=== PATIENT | female | born 1950 | race American Indian/Alaskan Native ===

== ENCOUNTER 2017-12-26 08:01 | Day surgery (SDC) | payer BC ==
[2017-12-18 14:02] VITALS: BMI 23.8
[2017-12-26] MEDS ORDERED: Propofol 10 mg/ml Inj (20 ML) ONE (10:45)
[2017-12-26] MEDS ORDERED: Etomidate 20 mg/10ml Inj IV ONE (10:51)
[2017-12-26] MEDS ORDERED: Sodium Chloride 0.9% 1,000 ML IV SCH (11:30)
[2017-12-26 11:46] VITALS: O2SAT 99
[2017-12-26 12:14] VITALS: BP 123/67; PULSE 62; RESP 18; TEMP 97.8
== END 2017-12-26 12:49 | disposition home or self-care (01) ==
LOC: ENDO 08:01
PROVIDERS: ATTEND Specialist
DX: Z12.11 Encounter for screening for malignant neoplasm of colon (principal); K64.8 Other hemorrhoids; I10 Essential (primary) hypertension; G35 Multiple sclerosis
CPT/HCPCS: 45378; J2001; J2704; J7030; J7040

== ENCOUNTER 2018-03-22 11:46 | Emergency (ER) | payer BC ==
[2018-03-22 11:47] VITALS: BMI 23.8
[2018-03-22] MEDS ORDERED: Benzocaine/Menthol (Cepacol) Lozenge MT STA (13:18)
--- NOTE | 2018-03-22 13:24 | ED PDOC ---
Arrival/HPI - General Chief Complaint: ENT Problem Time Seen by Provider: 03/22/18 11:59 Historian: Patient - History of Present Illness Narrative History of Present Illness (Text): 03/22/18 12:45 A 68 year old female, whose past medical history includes hypertension. hyperlipidemia, and multiple sclerosis, presents to the emergency department complaining of throat pain since 2 weeks ago from March 06. Patient notes associated head discomfort and mild discomfort when swallowing. She is able to drink fluids without difficulty. Patient reports she has taken Advil for the pain to some relief and has been to [facility] urgent care center, and was prescribed a nasal spray. Patient denies any drooling, nasal congestion, voice changes, ear pain, rhinorrhea, fever, chills, shortness of breath, chest pain, diarrhea, nausea, vomiting, urinary symptoms, back pain, neck pain, headache, dizziness, or any other complaints. PMD: Dr. Hylton Time/Duration: > week (2 weeks) Symptom Onset: Gradual Symptom Course: Unchanged Activities at Onset: Light Context: Home Past Medical History - Provider Review Nursing Documentation Reviewed: Yes - Infectious Disease Hx of Infectious Diseases: None - Cardiac Hx Heart Transplant: Yes Hx Pacemaker: No - Neurological Hx Paralysis: No - Hematological/Oncological Hx Blood Transfusions: No Hx Blood Transfusion Reaction: No - Musculoskeletal/Rheumatological Hx Musculoskeletal Disorders: Yes - Psychiatric Hx Emotional Abuse: No Hx Physical Abuse: No Hx Substance Use: No - Anesthesia Hx Anesthesia Reactions: No Hx Malignant Hyperthermia: No - Suicidal Assessment Feels Threatened In Home Enviroment: No Family/Social History - Physician Review Nursing Documentation Reviewed: Yes Family/Social History: No Known Family HX Smoking Status: Never Smoked Hx Alcohol Use: No Hx Substance Use: No Hx Substance Use Treatment: No Allergies/Home Meds Allergies/Adverse Reactions: Allergies No Known Allergies Allergy (Verified 03/22/18 12:16) Home Medications: Home Meds Medication Instructions Recorded Confirmed Polyethylene Glycol 3350 [Miralax] 17 gm PO DAILY 10/23/11 12/26/17 [place] [employer]/[place]-3 Fatty Acids 1,000 mg PO DAILY 10/23/11 12/26/17 [Fish Oil 500 mg Softgel] Ezetimibe [Zetia] 10 mg PO DAILY 12/18/17 12/26/17 Linaclotide [Linzess] 1 cap PO DAILY 12/18/17 12/26/17 Magnesium Hydroxide [Milk Of 30 ml PO DAILY PRN 12/18/17 12/26/17 Magnesia] Zolpidem [Ambien] 10 mg PO HS 12/18/17 12/26/17 amLODIPine [Norvasc] 5 mg PO DAILY 12/18/17 12/26/17 Furosemide [Lasix] 20 mg PO QWK 12/24/17 12/26/17 Ibuprofen [Advil] 200 mg PO Q6 PRN 12/24/17 12/26/17 Review of Systems - Physician Review All systems were reviewed & negative as marked: Yes - Review of Systems Constitutional: absent: Fevers, Night Sweats ENT: Other (+throat pain, no drooling). absent: Voice Changes, Sinus Congestion Respiratory: absent: SOB Cardiovascular: absent: Chest Pain Gastrointestinal: absent: Diarrhea, Nausea, Vomiting Genitourinary Female: absent: Urine Output Changes Musculoskeletal: absent: Back Pain, Neck Pain Neurological: Other (head discomfort). absent: Headache, Dizziness Physical Exam Vital Signs Reviewed: Yes Vital Signs Temp Pulse Resp BP Pulse Ox 03/22/18 12:14 98.3 F 65 18 132/81 100 Temperature: Afebrile Blood Pressure: Normal Pulse: Regular Respiratory Rate: Normal Appearance: Positive for: Well-Appearing, Non-Toxic Pain Distress: None Mental Status: Positive for: Alert and Oriented X 3 - Systems Exam Head: Present: Atraumatic, Normocephalic Pupils: Present: PERRL Extroacular Muscles: Present: EOMI Conjunctiva: Present: Normal Pharnyx: Present: Normal. No: ERYTHEMA, EXUDATE, Uvular Deviation (+uvular midline) Respiratory/Chest: Present: Clear to Auscultation, Good Air Exchange. No: Respiratory Distress, Accessory Muscle Use Neurological: Present: GCS=15, CN II-XII Intact, Speech Normal Skin: Present: Warm, Dry, Normal Color. No: Rashes Psychiatric: Present: Alert, Oriented x 3, Normal Insight, Normal Concentration Medical Decision Making ED Course and Treatment: 03/22/18 11:50 Impression: 68 year old female presenting to the emergency room for throat pain. Differential Diagnosis included but are not limited to: Viral Pharyngitis, Throat Mass Plan: -- CT of Neck without contrast -- Cepacol -- Motrin -- Throat culture -- Rapid strep group A -- Reassess and disposition Prior Visits: Notes and results from previous visits were reviewed. Progress Notes: 03/22/18 15:43 CT Soft Tissue Neck Creator : Morgan Thomas MD IMPRESSION: Unremarkable non-contrast enhanced CT of the neck. Patient states medications helped her symptoms. CT results reviewed with patient. She will be discharged home with followup. - RAD Interpretation Radiology Orders: 03/22/18 12:46 NECK SOFT TISSUE W/O CONTRAST [CT] Stat - Medication Orders Current Medication Orders: Discontinued Medications Benzocaine/Menthol (Cepacol Sore Throat) 1 nuvia MT STAT STA Stop: 03/22/18 13:19 Ibuprofen (Motrin Tab) 600 mg PO STAT STA Stop: 03/22/18 12:48 Last Admin: 03/22/18 13:12 Dose: 600 mg MAR Pain/Vitals Document 03/22/18 13:12 [email or web address] (Rec: 03/22/18 13:13 [email or web address] [employer] [facility] [employer]-[id number]) Pain Reassessment Is This A Pain ReAssessment? No Sleep Is patient sleeping during reassessment? No Presence of Pain Presence of Pain Yes Pain Scale Used Protocol: PSCALES Pain Scale Used Numeric Location Pain Location Body Site Throat Description Constant Intensity 7 Scale Used Numeric Pain Behavior Facial Grimacing Aggravating Factors Changing Position Alleviating Factors Medication Disposition/Present on Arrival - Present on Arrival Any Indicators Present on Arrival: No History of DVT/PE: No History of Uncontrolled Diabetes: No Urinary Catheter: No History of Decub. Ulcer: No History Surgical Site Infection Following: None - Disposition Have Diagnosis and Disposition been Completed?: Yes Diagnosis: Throat pain in adult Disposition: HOME/ ROUTINE Disposition Time: 15:44 Patient Plan: Discharge Patient Problems: Current Active Problems Problem Status Onset Throat pain in adult Acute Condition: IMPROVED Discharge Instructions (ExitCare): Sore Throat in Adults Additional Instructions: JORDAN ABREU, thank you for letting us take care of you today. Your provider was Pascual Simental DO and you were treated for Throat Pain. The emergency medical care you received today was directed at your acute symptoms. If you were prescribed any medication, please fill it and take as directed. It may take several days for your symptoms to resolve. Return to the Emergency Department if your symptoms worsen, do not improve, or if you have any other problems. Please contact your doctor or call one of the physicians/clinics you have been referred to that are listed on the Patient Visit Information form that is included in your discharge packet. Bring any paperwork you were given at discharge with you along with any medications you are taking to your follow up visit. Our treatment cannot replace ongoing medical care by a primary care provider outside of the emergency department. Thank you for allowing the [facility] team to be part of your care today. If you had an X-Ray or CT scan: A Radiologist will review the ED reading if any change in treatment is needed we will contact you. If you had a blood, urine, or wound culture: It will take several days for the results, if any change in treatment is needed we will contact you. If you had an STI test: It will take 48 hours for the results. Please call after 1 week if you have not heard back. Prescriptions: Benzocaine/Menthol [Cepacol Sore Throat Lozenge] 1 each MM Q2H PRN #30 lozenge PRN Reason: Sore Throat Ibuprofen [Motrin] 600 mg PO Q6 PRN #30 tab PRN Reason: Pain, Moderate (4-7) Referrals: Nabil Hylton MD [Primary Care Provider] - Follow up with primary Forms: [employer] ([place]), WORK NOTE
--- NOTE | 2018-03-22 15:33 | CT ---
Date of service: 03/22/2018 PROCEDURE: CT NECK WITHOUT CONTRAST HISTORY: throat pain COMPARISON: None available. TECHNIQUE: CT of the neck without intravenous contrast. Coronal and sagittal reformats generated. Radiation dose: Total exam DLP = 541.0 mGy-cm. This CT exam was performed using one or more of the following dose reduction techniques: Automated exposure control, adjustment of the mA and/or kV according to patient size, and/or use of iterative reconstruction technique. FINDINGS: NASOPHARYNX: Unremarkable. SUPRAHYOID NECK: Unremarkable oropharynx, oral cavity, parapharyngeal space and retropharyngeal space. INFRAHYOID NECK: Unremarkable larynx, hypopharynx, and supraglottic space. Vocal cords intact. MASS: None. GLANDS: Parotid and submandibular glands unremarkable. Normal size thyroid gland, without nodule. LYMPH NODES: Normal. No lymphadenopathy. CERVICAL SPINE: No fracture or focal lesion. OTHER FINDINGS: None. IMPRESSION: Unremarkable non-contrast enhanced CT of the neck.
[2018-03-22 15:50] VITALS: BP 130/77; PULSE 69; RESP 19; TEMP 98.2; O2SAT 98
== END 2018-03-22 15:50 | disposition home or self-care (01) ==
LOC: ED 11:46
DX: R07.0 Pain in throat (principal); I10 Essential (primary) hypertension; E78.5 Hyperlipidemia, unspecified; G35 Multiple sclerosis

== ENCOUNTER 2018-05-20 07:30 | Day surgery (SDC) | payer BC ==
[2018-05-13 09:19] VITALS: BMI 24.5
[2018-05-20 08:17] LABS: BASO # 0.01 K/mm3 (0.0-2.0); BASO % 0.4 % (0.0-3.0); EOS # 0.1 (0.0-0.7); EOS % 4.9 % (1.5-5.0); GRAN # 1.44 (1.4-6.5); GRAN % 54.3 % (50.0-68.0); HEMOGLOBIN 12.4 g/dL (12.0-16.0); LYMPH # 0.8 (1.2-3.4); LYMPH % 30.2 % (22.0-35.0); MEAN CELL VOLUME 91.7 fl (80.0-105.0); MEAN CORPUSCULAR HEMOGLOBIN 29.5 pg (25.0-35.0); MEAN CORPUSCULAR HGB CONC 32.1 g/dl (31.0-37.0); MEAN PLATELET VOLUME 8.3 fl (7.0-11.0); MONO # 0.3 (0.1-0.6); MONO % 10.2 % (1.0-6.0); RBC 4.21 10^6/uL (3.5-6.1); RED CELL DISTRIBUTION WIDTH 14.9 % (11.5-14.5); WHITE BLOOD COUNT 2.7 10^3/uL (4.5-11.0)
[2018-05-20 08:26] LABS: BLOOD UREA NITROGEN 20 mg/dL (7-21); CALCIUM 9.9 mg/dL (8.4-10.5); GFR NON-AFRICAN AMERICAN > 60
[2018-05-20 08:27] LABS: INR 0.97; PARTIAL THROMBOPLASTIN TIME 32.7 Seconds (25.1-36.5); PROTHROMBIN TIME 11.2 SECONDS (9.4-12.5)
[2018-05-20] MEDS ORDERED: Lidocaine 1% Inj (20ml) ONE (11:12)
[2018-05-20] MEDS ORDERED: Midazolam 2 MG/2 ML VIAL ONE (11:12)
[2018-05-20] MEDS ORDERED: Midazolam 2 MG/2 ML VIAL IVP ONE (12:00)
[2018-05-20] MEDS ORDERED: Oxycodone/Acetaminophen 5/325 mg Tab PO PRN (12:16)
[2018-05-20] MEDS ORDERED: Sodium Chloride 0.45% 1,000 ML IV SCH (12:30)
[2018-05-20 14:16] VITALS: PULSE 68; RESP 20; TEMP 98; O2SAT 98
[2018-05-20 14:17] VITALS: BP 127/70
--- NOTE | 2018-05-20 15:51 | US ---
PROCEDURE: Ultrasound-guided right thyroid fine needle aspiration biopsy. CLINICAL HISTORY: Goiter. Multiple bilateral nodules. Dominant 2.4 cm right lower pole nodule. Evaluate for malignancy PHYSICIAN(S): Parmjit Cadena M.D. TECHNIQUE: The relative risks and indications for the procedure were explained to the patient and consent obtained. The patient was placed supine on the stretcher with the neck extended and preliminary sonography of the thyroid performed. This reveal bilateral nodules with a dominant 2.4 cm hypoechoic right lower pole nodule.. The neck was prepped and draped in the usual sterile fashion. Conscious sedation and monitoring were provided throughout the procedure by a nurse. 1% Xylocaine was used to anesthetize the skin and soft tissues at the access site. Three passes with a 22-gauge needle were performed under ultrasound guidance for fine needle aspiration of the 2.4 cm hypoechoic nodule in the right thyroid. The slides were reviewed by pathology and deemed adequate. The patient tolerated the procedure well. IMPRESSION: 1. Ultrasound guided fine needle aspiration of a 2.4 cm hypoechoicnodule in the right thyroid.
== END 2018-05-20 14:30 | disposition home or self-care (01) ==
LOC: SDS 07:30
PROVIDERS: ATTEND Radiology Vascular & Interventional Radiology
DX: E04.2 Nontoxic multinodular goiter (principal); I10 Essential (primary) hypertension; G35 Multiple sclerosis; K21.9 Gastro-esophageal reflux disease without esophagitis; K59.00 Constipation, unspecified; Z83.3 Family history of diabetes mellitus; Z82.49 Family history of ischemic heart disease and other diseases of the circulatory system
CPT/HCPCS: 10005; 36415; 80048; 85025; 85610; 85730; 88173; J2250; J2405; J3010; J7030